=== PATIENT | male | born 1980 | race Caucasian/White ===

== ENCOUNTER 2018-04-14 15:14 | Emergency (ER) | payer OTHER ==
[~2018-04-14] VITALS: Ht 182.9 cm; Wt 86.4 kg
[~2018-04-14 15:14] MED LIST: NAPROXEN500 MG PO
[2018-04-14 15:38] LABS: HEMATOCRIT 43.4 % (38.0-50.0); HEMOGLOBIN 15.3 G/DL (12.5-16.6); MCH 30.3 PG (29.0-34.0); MCHC 35.3 G/DL (30.0-36.0); MCV 85.9 FL (86-99); PLATELET COUNT 284 K/uL (156-360); RBC DIS.WIDTH-CV 11.9 % (11.8-14.6); RBC DIS.WIDTH-SD 37.4 % (39-53); RED BLOOD COUNT 5.05 M/uL (4.00-5.50); WHITE BLOOD COUNT 7.9 K/uL (4.1-10.2)
[2018-04-14 15:49] LABS: CHLORIDE 104 mEq/L (99-109); POTASSIUM 4.1 mEq/L (3.7-5.4); SODIUM 139 mEq/L (136-147)
[2018-04-14 15:51] LABS: GLUCOSE 152 mg/dL (70-99)
[2018-04-14 15:55] LABS: GFR ESTIMATE (CALCULATED) > 59 mL/min/ (58.99-99999)
[2018-04-14 15:56] LABS: UREA NITROGEN (BUN) 9 mg/dL (9-23)
[2018-04-14 15:57] LABS: TROP-I INTERPRETATION NEGATIVE; TROPONIN-I < 0.01 ng/mL (0.0-0.30)
[2018-04-14 17:34] LABS: D-DIMER ELISA < 150.00 ng/mLDDU (<230)
[2018-04-14 20:10] LABS: TROP-I INTERPRETATION NEGATIVE; TROPONIN-I < 0.01 ng/mL (0.0-0.30)
[2018-04-14 21:06] VITALS: BP 139/95
== END 2018-04-14 21:07 | disposition home or self-care (01) ==
LOC: EME 15:14
PROVIDERS: Emergency Medicine
DX: R07.9 Chest pain, unspecified (principal); F41.1 Generalized anxiety disorder; J45.909 Unspecified asthma, uncomplicated
CPT/HCPCS: 71046; 80048; 84484; 85027; 85379; 93005; 99281; 99285